=== PATIENT | male | born 1995 | race African-American/Black ===

== ENCOUNTER 2017-07-11 10:45 | Emergency (ER) | payer BC ==
[~2017-07-11] VITALS: Ht 172.7 cm; Wt 66.5 kg
[2017-07-11 11:16] VITALS: Ht 172.7 cm; Wt 66.5 kg
[2017-07-11] MEDS ORDERED: SOD CHLORIDE 0.9% 1,000 ML IV STA (11:31)
[2017-07-11] MEDS ORDERED: ALPR2TAB PO (11:43)
[2017-07-11 11:58] LABS: BASOPHIL # 0.1 10^3/ul (0.0-0.1); BASOPHILS % 0.7 % (0.0-2.0); EOSINOPHILS # 0.2 10^3/ul (0.0-0.5); HEMATOCRIT 43.6 % (42.0-52.0); LYMPHOCYTES # 0.9 10^3/ul (0.8-2.9); LYMPHOCYTES % 9.8 % (15.0-51.0); MEAN CORPUSCULAR HEMOGLOBIN 29.2 pg (29.0-33.0); MEAN CORPUSCULAR HGB CONC 34.4 g/dl (32.0-37.0); MEAN CORPUSCULAR VOLUME 84.8 fl (82.0-101.0); MEAN PLATELET VOLUME 10.6 fl (7.4-10.4); MONOCYTE # 0.4 10^3/ul (0.3-0.9); MONOCYTES % 4.2 % (0.0-11.0); NEUTROPHILS % 82.4 % (39.0-77.0); PLATELET COUNT 239 10^3/UL (140-415); RED BLOOD COUNT 5.14 10^6/ul (4.70-6.10); RED CELL DISTRIBUTION WIDTH 12.5 % (11.5-14.5)
[2017-07-11 12:22] LABS: CALCIUM 9.6 mg/dl (8.4-10.2); CREATININE 0.92 mg/dl (0.61-1.24); POTASSIUM 4.3 mmol/L (3.5-5.1)
[2017-07-11 12:27] LABS: BARBITURATES Negative (NEGATIVE); BENZODIAZEPINES Negative (NEGATIVE); CANNABINOIDS Positive (NEGATIVE); COCAINE Negative (NEGATIVE); OPIATES Positive (NEGATIVE)
[2017-07-11] MEDS ORDERED: HYDROCODONE/APAP (5/325) TAB PO ONE (12:30)
--- NOTE | 2017-07-11 12:36 | ERD ---
ER Documentation Chief Complaint Date/Time DATE: 07/11/17 TIME: 12:32 Chief Complaint WITTNESSED SZ AT HOME APPROX 45 MINUTES AGO W/ DURATION 5 MINUTES. NO HX SZ HPI This is a 22-year-old male presents to the emergency room for evaluation of possible seizure. This patient is here with his friend who is giving the majority of the story and states that this patient was on the toilet and was straining and the patient stood up and fell forward and had a seizure which lasted approximately 60 seconds. His friend states that he was confused after the seizure. This patient states that he does not have any history of seizures but states that he has not slept in the past 2 nights for more than 1 hour because he has a lot of stress. The patient also states that he ran out of his anxiety medication 2 weeks ago and states that he was taking alprazolam 2 mg daily. He denies any headache but does state that his lip is swollen and it hurts ROS All systems reviewed and are negative except as per history of present illness. Medications Home Meds Reported Medications Alprazolam* (Xanax*) 2 Mg Tablet, 2 MG PO DAILY Y for ANXIETY, TAB 07/11/17 Allergies Allergies: Coded Allergies: No Known Allergy (Unverified , 07/11/17) PMhx/Soc Medical and Surgical Hx: pt denies Surgical Hx Hx Psychiatric Problems: Yes (anxiety) Hx Miscellaneous Medical Probl: No Hx Alcohol Use: No Hx Substance Use: No Hx Tobacco Use: No Smoking Status: Unknown if ever smoked Physical Exam Vitals Vital Signs Date Time Temp Pulse Resp B/P Pulse Ox O2 Delivery O2 Flow Rate FiO2 07/11/17 11:40 98.2 72 16 100/69 100 Room Air 07/11/17 11:16 98.2 70 16 118/75 98 Physical Exam INITIAL VITAL SIGNS: Reviewed by me GENERAL: The patient is well developed and appropriate for usual state of health in no apparent distress HEENT: Soft tissue swelling of the right upper lip, no tooth avulsions, mild abrasion on right tongue, pupils equal, round, and reactive to light. EOMI. There is no scleral icterus. NECK: C-spine is soft and supple, there is no meningismus. There is no cervical lymphadenopathy. LUNGS: Clear to auscultation bilaterally. There are no rales, wheezes or rhonchi. HEART: Regular rate and rhythm, no murmurs, clicks, rubs or gallops. ABDOMEN: Soft, non-tender, non-distended. There are bowel sounds in all four quadrants. No rebound or guarding. EXTREMITIES: There is no peripheral cyanosis or edema. No focal swelling or erythema. NEUROLOGICAL: The patient moves all four extremities with 5/5 strength. Cranial nerves II - XII are intact. Normal gait. Alert and oriented SKIN: There is no apparent rash or petechiae. HEME/LYMPHATIC: There is no evidence of excessive bruising or lymphedema. PSYCHIATRIC: The patient does not appear anxious or depressed. Result Diagram: 07/11/17 1140 07/11/17 1140 Results 24 hrs Laboratory Tests Test 07/11/17 11:40 07/11/17 11:59 07/11/17 12:14 White Blood Count 9.010^3/ul Red Blood Count 5.1410^6/ul Hemoglobin 15.0g/dl Hematocrit 43.6% Mean Corpuscular Volume 84.8fl Mean Corpuscular Hemoglobin 29.2pg Mean Corpuscular Hemoglobin Concent 34.4g/dl Red Cell Distribution Width 12.5% Platelet Count 08823^3/UL Mean Platelet Volume 10.6fl Neutrophils % 82.4% Lymphocytes % 9.8% Monocytes % 4.2% Eosinophils % 2.0% Basophils % 0.7% Nucleated Red Blood Cells % 0.0/100WBC Neutrophils # (Manual) 7.510^3/ul Lymphocytes # 0.910^3/ul Monocytes # 0.410^3/ul Eosinophils # 0.210^3/ul Basophils # 0.110^3/ul Nucleated Red Blood Cells # 0.010^3/ul Sodium Level 142mmol/L Potassium Level 4.3mmol/L Chloride Level 107mmol/L Carbon Dioxide Level 26mmol/L Anion Gap 13 Blood Urea Nitrogen 8mg/dl Creatinine 0.92mg/dl Glucose Level 124mg/dl Calcium Level 9.6mg/dl Creatine Kinase 306IU/L Urine Opiates Screen Positive Urine Barbiturates Negative Urine Amphetamines Screen Negative Urine Benzodiazepines Screen Negative Urine Cocaine Screen Negative Urine Cannabinoids Positive Bedside Glucose 117mg/dL Current Medications Medications (Trade) Dose Ordered Sig/[place] Route PRN Reason Start Time Stop Time Status Last Admin Dose Admin Sodium Chloride (NS) 1,000 ml @ 1,000 mls/hr Q1H STAT IV 07/11/17 11:31 07/11/17 12:30 DC 07/11/17 11:49 Acetaminophen/ Hydrocodone Bitart ([place] (5/325)) 1 tab ONCE ONCE PO 07/11/17 12:30 07/11/17 12:31 UNV Procedures/MDM This 22-year-old male presents to the ER for evaluation of seizures. The patient has no previous history of seizures, however when I evaluated him he did have some abrasion to the right tongue and soft tissue swelling of the right leg consistent with a contusion. This patient is alert oriented to person place and time. Lab work was obtained which was mild elevation in CK. Patient's urine drug screen is positive for opiates, and cannabinoids. This patient has had no neurological decompensation in the emergency room. No seizure activity in the emergency room. I feel that this patient's seizure could be due to lack of sleep in the past 48 hours. The patient was given 1 p.o. [place] in the emergency room and will be discharged home with a prescription for [place] Departure Diagnosis: Primary Impression: Seizure disorder Additional Impressions: Lack of adequate sleep Contusion Condition: Stable BILLY DRISCOLL DO Jul 11, 2017 12:35
[2017-07-11] MEDS ORDERED: HYDR-906 PO (12:37)
[2017-07-11 13:08] VITALS: BP 130/89; PULSE 75; RESP 16; TEMP 98.2
== END 2017-07-11 13:15 | disposition home or self-care (01) ==
LOC: E/R 10:45
DX: G40.909 Epilepsy, unspecified, not intractable, without status epilepticus (principal); S80.11XA Contusion of right lower leg, initial encounter; S00.512A Abrasion of oral cavity, initial encounter; R40.2142 Coma scale, eyes open, spontaneous, at arrival to emergency department; R40.2252 Coma scale, best verbal response, oriented, at arrival to emergency department; R40.2362 Coma scale, best motor response, obeys commands, at arrival to emergency department; X58.XXXA Exposure to other specified factors, initial encounter; Y92.89 Other specified places as the place of occurrence of the external cause; Z72.820 Sleep deprivation
CPT/HCPCS: 36415; 80048; 80307; 82550; 82962; 85025; J7030; Z7502